=== PATIENT | female | born 1995 | race Caucasian/White ===

== ENCOUNTER → 2017-07-25 | Outpatient (CLI) | payer OTHER ==
[2017-07-25 10:41] LABS: MEAN CELL VOLUME 84.9 fL (80-100); MEAN CORPUSCULAR HEMOGLOBIN 29.5 pg (25-34); MEAN CORPUSCULAR HGB CONC 34.7 g/dl (32-36); MEAN PLATELET VOLUME 9.8 fL (7.4-10.4); PLATELET COUNT 235 K/uL (130-400); RED BLOOD COUNT 4.24 M/uL (4.2-5.4); WHITE BLOOD COUNT 8.47 K/uL (4.8-10.8)
[2017-07-25 11:07] LABS: BASO % 0.2 %; BASO ABS # 0.02 K/uL (0-0.2); COMPLETE YES; EOS % 0.6 %; IG% 0.2 %; LYMPH % 18.7 %; LYMPH ABS # 1.58 K/uL (1.2-3.4); MONO % 5.4 %; NEUT % 74.9 %
[2017-07-25 16:55] LABS: MANUAL MICROSCOPIC REQUIRED? YES; URINE APPEARANCE CLEAR (CLEAR); URINE BILIRUBIN NEG (NEG); URINE COLOR YELLOW; URINE NITRITE NEG (NEG); URINE SPECIFIC GRAVITY >= 1.030 (1.000-1.030); UROBILINOGEN NEG (NEG)
[2017-07-25 17:01] LABS: REVIEW REQ? NO
[2017-07-25 17:19] LABS: URINE RBC 0-4 /hpf (0-4)
[2017-07-25 17:20] LABS: URINE AMORPHOUS SEDIMENT PRESENT (NONE PRSENT); URINE BACTERIA 1+ (NEG)
[2017-07-28 07:21] LABS: CHLAMYDIA TRACH RNA*** NOT DETECTED (NOT DETECTED); GC (NEIS GONORRHOEAE)RNA** NOT DETECTED (NOT DETECTED)
== END | disposition home or self-care (01) ==
LOC: C.LAB1850 09:24
PROVIDERS: ATTEND Obstetrics & Gynecology
DX: Z34.01 Encounter for supervision of normal first pregnancy, first trimester (principal); Z3A.00 Weeks of gestation of pregnancy not specified

== ENCOUNTER → 2017-08-22 | Outpatient (CLI) | payer BC, OTHER ==
[~2017-08-22] MED LIST: FERR1TAB23; PRENTAB26 PO
== END | disposition home or self-care (01) ==
LOC: C.LAB1850 09:54
PROVIDERS: ATTEND Obstetrics & Gynecology
DX: O23.42 Unspecified infection of urinary tract in pregnancy, second trimester (principal)

== ENCOUNTER → 2017-11-14 | Outpatient (CLI) | payer OTHER ==
[2017-11-14 12:20] LABS: HEMATOCRIT 32.8 % (37-47); HEMOGLOBIN 10.8 g/dL (12.0-16.0)
== END | disposition home or self-care (01) ==
LOC: C.LAB1850 11:23
PROVIDERS: ATTEND Obstetrics & Gynecology
DX: Z34.03 Encounter for supervision of normal first pregnancy, third trimester (principal)

== ENCOUNTER → 2018-01-09 | Outpatient (CLI) | payer OTHER | END | disposition home or self-care (01) | LOC: C.LABSPEC 15:49 | PROVIDERS: ATTEND Obstetrics & Gynecology | DX: Z34.03 Encounter for supervision of normal first pregnancy, third trimester (principal) ==

== ENCOUNTER 2021-02-22 22:24 | Inpatient (IN) ==
[2021-02-22] MEDS ORDERED: OXYTOCIN 30 UNITS/500 ML BAG IV PRN (22:43)
[2021-02-22] MEDS ORDERED: LACTATED RINGER'S 1,000 ML IV PRN (22:43)
--- NOTE | 2021-02-22 22:47 | History & Physical Report ---
Date of Service February 22, 2021 Assessment & Plan (1) Normal labor: admit, iv, labs. fhts categ 1. epidural on demand. History of Present Illness Chief Complaint: regular contractions Primary Care Provider: NO PCP 25yo at 40+wks glendy presents to L&D with above cc. She feels contractions are same frequency. No rom. No vb. +FM PNC c/b 1. HGSIL pap--colpo at 28wks, planned pp (tavares) PNL rh pos, ri, gbs neg OBH: x 1 GYNH: pap as noted above. no stds Allergies Allergy/AdvReac Type Severity Reaction Status Date / Time No Known Allergies Allergy Verified 02/22/21 22:44 Home Medications Medication Instructions Recorded Confirmed Type prenat.vits,isaias,acs-rswv-dmaej 1 tab PO DAILY 07/07/20 02/16/21 History sertraline 50 mg tablet 50 mg PO DAILY #30 tab 08/30/20 02/16/21 Rx ferrous sulfate 325 mg (65 mg 325 mg PO DAILY 12/04/20 02/16/21 History iron) tablet Patient History Medical History Anxiety Depression HGSIL (high grade squamous intraepithelial lesion) on Pap smear of cervix HGSIL (high grade squamous intraepithelial lesion) on Pap smear of cervix No known health problems Varicella vaccination Surgical History H/O oral surgery Status post colposcopy November 2020 at 28 weeks pregant. Family History Grandmother (Paternal) Thyroid cancer Grandfather (Paternal) CJD (Creutzfeldt-Milo disease) Other Family history non-contributory Prostate cancer Denies family history of Ovarian cancer Myocardial infarction Breast cancer Colorectal cancer Social History Smoking Status: Never smoker Second Hand Exposure: Yes; Hx Alcohol Use: No Hx Substance Use: No Preferred Language: Hungarian Communication Ability: Effective Visual Impairment: No Limitations Hearing Ability: Normal Carrier Blower Required: No Beliefs That Will Affect Care: None marital status: Single marital status details: Kin Villela (21) [phone] Current Living Situation: Spouse and Family Current Living Situation Comment: son- age 3 current occupational status: employed 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 [employer] Feels Safe at Home: Yes Safety Concerns: Feels Safe At This Time Childhood Exposure to Second-Hand Smoke: Yes Dental Care, Regularly: Yes Physical Activity Frequency: 3-4 Times per Week Seatbelt Use: always Sunscreen Use: No Review of Systems as per Subjective / HPI Physical Exam Constitutional: WD/WN, vitals as above Respiratory: normal respiratory effort, lungs clear to auscultation Cardiovascular: Rate/Rhythm: regular rate and regular rhythm Gastrointestinal (Abdomen): soft gravid nt Musculoskeletal: +1 edema nontender calves Neurologic: grossly normal Psychiatric: A+Ox3, euthymic affect Genitourinary: OB Exam Abdomen: + vertex and + estimated weight (7.5#) Manual OB Exam: + cervical dilation 5 cm, + cervical effacement 80% and + station -2 OB Exam Monitor Tracing: + external FHT monitor used, + external uterine monitor used (q4), + category I and + normal FHT variability Results & Data ([facility]) Vital Signs (Past 12 Hours) Vital Signs Temp Pulse Resp BP 02/22/21 22:32 97.9 F 100 H 18 116/66 Coding Level of Care Code None Diagnoses Normal labor O80; Z37.9
[2021-02-22 23:28] LABS: Hematocrit (blood only) 29.3 % (37-47); Hemoglobin 9.4 g/dL (12.0-16.0); Mean Corpuscular Hemoglobin 25.5 pg (25-34); Mean Corpuscular Hgb Conc 32.1 g/dL (32-36); Mean Corpuscular Volume 79.4 fL (80-100); Mean Platelet Volume 9.9 fL (7.4-10.4); Platelet Count 237 K/uL (130-400); RDW Coefficient of Variation 15.1 % (11.5-14.5); RDW Standard Deviation 43.4 fL (36.4-46.3); Red Blood Count 3.69 M/uL (4.2-5.4); White Blood Count 12.29 K/uL (4.8-10.8)
--- NOTE | 2021-02-23 02:39 | Labor Progress Brief Note ---
Date of Service February 23, 2021 Subjective Reason For Note: Routine Evaluation more painful ctx. Assessment & Plan (1) Normal labor: anticip 2nd stage soon. fhts categ 1 Admission and Anticipated Discharge Date Admission Date: February 23, 2021 Physical Exam Constitutional: WD/WN, vitals as above Genitourinary: Manual OB Exam: + cervical dilation 9 cm, + cervical effacement 100%, + station 0 and + amniotic fluid (AROM) clear OB Exam Monitor Tracing: + external FHT monitor used, + external uterine monitor used (q2), + category I and + normal FHT variability Results & Data ([place]) Vital Signs (Past 12 Hours) Vital Signs Temp Pulse Resp BP 02/23/21 01:03 98.1 F 86 16 108/59 L 02/22/21 22:32 97.9 F 100 H 18 116/66 Coding Level of Care Code None Diagnoses Normal labor O80; Z37.9
[2021-02-23] MEDS ORDERED: LIDOCAINE 1% LOCAL 20 ML VIAL ONE (03:01)
--- NOTE | 2021-02-23 03:14 | Delivery Summary ---
Vaginal Delivery Summary Date of Service February 23, 2021 Vaginal Delivery Summary and 2nd Degree LAC The patient dilated to complete and pushed to deliver a viable female infant Apgars 9 and 10 via over small 2nd degree perineal laceration. Mouth and nose bulb suctioned at perineum. Shoulders and body delivered with ease through body cord. was vigorous and crying at . Cord clamped at 30 seconds of life and infant to maternal abdomen where the cord was then doubly clamped and cut. Placenta delivered spontaneously and intact, three-vessel cord. Hemostasis achieved with dilute pitocin and uterine massage. Laceration repaired with 3-0 vicryl after 1% local lidocaine anesthesia. Cervix and sulci intact. EBL 300 cc. Mother and baby stable recovery. [facility] Vaginal Delivery Charge Vaginal Delivery Codes: 96802 global code for the antepartum, delivery, and post- Delivery Type Details: and 2nd Degree LAC
[2021-02-23] MEDS ORDERED: ACETAMINOPHEN 325 MG TAB PO PRN (03:15)
[2021-02-23] MEDS ORDERED: OXYTOCIN 20 UNITS in LACTATED RINGER'S 1,000 ML IV SCH (03:15)
[2021-02-23] MEDS ORDERED: oxyCODONE/ACETAMINOPHEN 5mg/325mg TAB PO PRN (03:15)
[2021-02-23] MEDS ORDERED: SUPERCREAM 0.870% 15 GM JAR EXT PRN (05:10)
[2021-02-23] MEDS ORDERED: HYDROCORTISONE ACETATE 25 MG SUPP PR PRN (05:10)
[2021-02-23] MEDS ORDERED: OXYTOCIN 30 UNITS/500 ML BAG IV PRN (05:10)
[2021-02-23] MEDS ORDERED: BENZOCAINE 20% AER SPR 82.5 GM CAN EXT PRN (05:10)
[2021-02-23] MEDS ORDERED: DIPHTHERIA/TETANUS/PERTUSSIS 0.5 ML SYR/VIAL IM ONE (05:10)
[2021-02-23] MEDS: PRENATAL VITAMIN 1 TAB PO SCH (08:06)
[2021-02-23] MEDS: DOCUSATE SODIUM 100 MG CAP PO SCH ×2 (08:06→20:55)
[2021-02-23 12:02] LABS: Hematocrit (blood only) 26.7 % (37-47); Hemoglobin 8.3 g/dL (12.0-16.0)
[2021-02-23] MEDS: IBUPROFEN 600 MG TAB PO PRN ×2 (13:52→20:55)
[2021-02-24] MEDS: IBUPROFEN 600 MG TAB PO PRN ×2 (00:57→08:25)
--- NOTE | 2021-02-24 07:00 | Obstetrical Progress Note ---
Date of Service February 24, 2021 Assessment & Plan (1) state: Recovering normally, >24hr post delivery and would like d/c today. instructions reviwed. Subjective Ambulation: ambulating normally Voiding: no voiding problems Passing Gas:: Yes Diet Tolerance:: regular diet Lochia:: Small Feeding Type:: bottle feeding Physical Exam Constitutional WD/WN, vitals as above Eyes PERRL, conjunctivae normal, anicteric sclerae Neck normal visual inspection Respiratory normal respiratory effort and able to speak in complete sentences; no respiratory distress and no labored breathing Cardiovascular Rate/Rhythm: regular rate and regular rhythm Extremities: no edema Chest (Breasts) Chest: normal inspection of chest Gastrointestinal (Abdomen) Inspection/Auscultation: abdomen normal to inspection Soft, postgravid Psychiatric A+Ox3, euthymic affect Genitourinary OB Exam Abdomen: + fundal height Fundus: + firm and + relation to umbilicus (fundus just below umbilicus); not tender Results & Data ([facility]) Vital Signs (Past 12 Hours) Vital Signs Temp Pulse Resp BP Pulse Ox 02/24/21 00:30 97.9 F 76 16 120/64 98 02/23/21 19:52 97.9 F 88 18 106/71 99
[2021-02-24] MEDS: DOCUSATE SODIUM 100 MG CAP PO SCH (08:25)
[2021-02-24] MEDS: PRENATAL VITAMIN 1 TAB PO SCH (08:25)
== END 2021-02-24 11:03 | disposition home or self-care (01) | DRG 807 ==
LOC: OPB 22:24 → 4S1 22:27 → 4N 02-23 05:55